=== PATIENT | male | born 1965 | race Caucasian/White ===

== ENCOUNTER 2023-07-16 20:43 | Emergency (ER) | payer OTHER ==
[~2023-07-16] VITALS: Ht 157.5 cm; Wt 90.6 kg
[~2023-07-16 20:43] MED LIST: ACE650RS; ATENPOW10 PO; FLUN0.02; OMEPRAZOLE PO; [UNRECOGNIZED DRUG - CODE]; albuterol INH
[2023-07-16 21:42] LABS: Basophils # (auto) 0.1 10 ^3/uL (0-0.2); Basophils % (auto) 0.8 % (0.0-2.0); Eosinophils # (auto) 0.2 10 ^3/uL (0-0.8); Eosinophils % (auto) 1.4 % (0.0-7.0); Hematocrit 43.7 % (41.0-53.0); Hemoglobin 15.3 g/dL (13.5-17.5); Lymphocytes # (auto) 2.4 10 ^3/uL (0.4-5.4); Lymphocytes % (auto) 22.7 % (10.0-50.0); Mean Corpuscular Hemoglobin 31.5 pg (28.0-32.0); Monocytes # (auto) 1.1 10 ^3/uL (0-1.3); Monocytes % (auto) 10.8 % (0.0-12.0); Neutrophils # (auto) 6.8 10 ^3/uL (1.6-8.6); Neutrophils % (auto) 64.3 % (37.0-80.0); Nucleated Red Blood Cells % 0.1 %; Red Blood Cells 4.86 10^6/uL (4.5-5.90); Red Cell Distribution Width 14.3 % (11.8-14.3); White Blood Cell 10.6 10^3/uL (4.4-10.8)
[2023-07-16 21:51] LABS: Chloride 107 mmol/L (98-107); Potassium 4.1 mmol/L (3.5-5.1); Sodium 137 mmol/L (136-145)
[2023-07-16 21:52] LABS: Anion Gap 6 (5-15); Carbon Dioxide 24 mmol/L (20-30)
[2023-07-16 21:53] LABS: Calcium 9.9 mg/dL (8.5-10.1)
[2023-07-16 21:57] LABS: Blood Urea Nitrogen 14 mg/dL (9-23); Glucose 199 mg/dL (74-106)
[2023-07-16 22:02] LABS: INR 0.97 (0.9-1.15); Prothrombin Time 10.3 sec (9.3-11.8)
[2023-07-16 22:52] VITALS: BP 147/88; PULSE 72; RESP 18; TEMP 98.5; O2SAT 95
== END 2023-07-16 22:53 | disposition home or self-care (01) ==
LOC: ER 20:43
DX: R79.9 Abnormal finding of blood chemistry, unspecified (principal); R79.1 Abnormal coagulation profile; G08 Intracranial and intraspinal phlebitis and thrombophlebitis; Z29.9 Encounter for prophylactic measures, unspecified
CPT/HCPCS: 36415; 80048; 85025; 85610

== ENCOUNTER 2023-11-14 19:53 | Emergency (ER) | payer OTHER ==
[~2023-11-14] VITALS: Ht 157.5 cm; Wt 86.6 kg
[2023-11-14] MEDS ORDERED: CEPH500C PO (20:41)
[2023-11-14 21:48] VITALS: BP 147/83; PULSE 58; RESP 14; O2SAT 98
[2023-11-14] MEDS: cefTRIAXone W LIDOCAINE 1 GM IM IM ONE (21:58)
[2023-11-14] MEDS: cefTRIAXone SOD 1,000 MG VL ONE (22:10)
== END 2023-11-14 22:00 | disposition home or self-care (01) ==
LOC: ER 19:53
DX: S91.209A Unspecified open wound of unspecified toe(s) with damage to nail, initial encounter (principal); E11.9 Type 2 diabetes mellitus without complications; J45.909 Unspecified asthma, uncomplicated; E78.5 Hyperlipidemia, unspecified; I10 Essential (primary) hypertension; X50.9XXA Other and unspecified overexertion or strenuous movements or postures, initial encounter; Y93.89 Activity, other specified; Y92.89 Other specified places as the place of occurrence of the external cause; Y99.8 Other external cause status
CPT/HCPCS: 96372; 99283; J0696